=== PATIENT | female | born 1960 | race Hispanic/Latino ===

== ENCOUNTER → 2018-08-01 | Outpatient (CLI) | payer BC ==
[~2018-08-01] MED LIST: CHOL3000 PO; LOSA25TA16 PO; MAGN500C15 PO
== END | disposition home or self-care (01) ==
LOC: OIH 16:13
PROVIDERS: ATTEND Internal Medicine
DX: M19.012 Primary osteoarthritis, left shoulder (principal); M47.892 Other spondylosis, cervical region; M47.895 Other spondylosis, thoracolumbar region; M54.12 Radiculopathy, cervical region; M54.16 Radiculopathy, lumbar region; M23.92 Unspecified internal derangement of left knee; I10 Essential (primary) hypertension; K21.9 Gastro-esophageal reflux disease without esophagitis
CPT/HCPCS: 71046; 72050; 72100; 73030; 73560

== ENCOUNTER → 2018-08-08 | Outpatient (CLI) | payer SELFPAY | END | disposition home or self-care (01) | LOC: RAH 14:55 | PROVIDERS: ATTEND Internal Medicine | DX: M50.323 Other cervical disc degeneration at C6-C7 level (principal); M54.12 Radiculopathy, cervical region | CPT/HCPCS: 72125 ==

== ENCOUNTER → 2024-08-04 | Outpatient (CLI) | payer BC ==
[~2024-08-04] MED LIST changes: -LOSA25TA16 PO; +LOSA25TA41 PO; -MAGN500C15 PO; +MAGN500C4 PO
== END | disposition home or self-care (01) ==
LOC: RAH 14:04
PROVIDERS: ATTEND Internal Medicine
DX: I65.23 Occlusion and stenosis of bilateral carotid arteries (principal)
CPT/HCPCS: 93880